=== PATIENT | male | born 1975 | race Caucasian/White ===

== ENCOUNTER 2025-06-24 07:46 | Emergency (ER) | payer OTHER, SELFPAY ==
[2025-06-24] VITALS (70 sets, daily range): BP systolic 148–192; BP diastolic 80–102; PULSE 52–90; RESP 10–36; TEMP 36.9; O2SAT 87–99; BMI 29.9
--- NOTE | 2025-06-24 07:55 | DI.CT.S_ITS ---
PROCEDURE: CT TRAUMA CHEST ABDOMEN PELVIS INDICATIONS: Trauma TECHNIQUE: MDCT axial chest images were obtained with IV contrast in the arterial phase. Maximum intensity projections and multiplanar reformats were obtained. MDCT axial abdomen and pelvis images were obtained with IV contrast in the portal venous phase. Multiplanar reformats were obtained. Optional delayed phase scanning may also be obtained Advanced techniques were used to lower patient radiation exposure. COMPARISON:None. FINDINGS Image Quality: Diagnostic. Chest: Lungs and pleura: No pneumothorax or hemothorax. No pulmonary contusions or lacerations. No solid pulmonary nodule requiring follow-up. Moderate centrilobular and paraseptal emphysema. 4 mm solid pulmonary nodule in the left upper lobe (3/179). 7 mm solid pulmonary nodule in the posterolateral right lower lobe (3/180). Vascular: No dissection or pseudoaneurysm. No incidental central pulmonary embolism. No hemopericardium. Moderate to severe coronary artery calcifications for age. Mediastinum: No mediastinum hematoma. No suspicious mass or lymph nodes. No actionable thyroid nodules. Chest wall: Mild displaced fracture of the left clavicular head adjacent to the sternoclavicular joint. Minimally displaced fractures of the left lateral 3rd through 6th ribs. Thoracic spine: No acute fracture or traumatic subluxation. ABDOMEN and PELVIS: Liver: No laceration or capsular hematoma. Gallbladder: Unremarkable. Biliary system: Non-dilated. Pancreas: Unremarkable. Spleen: No laceration or capsular hematoma. Adrenals: No suspicious nodules. Kidneys: No contrast extravasation or hydronephrosis. No solid masses. Vessels and lymph nodes: No pathology lymph nodes by size criteria. No dissection or aneurysm. No retroperitoneal hematoma. Bowel and peritoneum: No suspicious region of mesenteric hemorrhage or hemoperitoneum. No bowel obstruction. Pelvis: Unremarkable bladder. Pelvic ring and femurs: No pelvic ring disruption. No hip fractures. Benign enchondroma in the left proximal femur. Lumbar spine: Minimally displaced comminuted fracture of the L2 vertebral body with mild loss of vertebral body height. 3-4 mm retropulsion of osseous fragments at the L2-3 level, which result in moderate to severe narrowing of the spinal canal. Abdominal wall: No drainable fluid collection or hematoma. IMPRESSION: 1. Comminuted fracture of the L2 vertebral body with mild loss of vertebral body height. Approximately 3-4 mm retropulsion of osseous fragments at the L2-3 level results in moderate to severe narrowing of the spinal canal. 2. Minimally displaced left lateral 3rd through 6th rib fractures. No pleural effusion or pneumothorax. 3. Mildly displaced fracture of the left medial clavicle adjacent to the sternoclavicular joint. 4. Moderate centrilobular and paraseptal emphysema. Right lower lobe 7 mm nodule. Recommend follow-up CT chest in 6-12 months. 5. Moderate to severe coronary artery calcifications. No acute vascular injury is seen. Approved by: Virgilio Vallejo M.D. on 06/24/2025 at 9:05
--- NOTE | 2025-06-24 07:55 | DI.RAD.S_ITS ---
PROCEDURE: XR KNEE LT 1TO2V INDICATIONS: trauma TECHNIQUE: 2 views of the knee were acquired. COMPARISON: None. FINDINGS: Bones: Micro the comminuted and mildly depressed fracture of the medial and lateral tibial plateau with vertical components and a transverse component at the tibial metaphysis, compatible with a Schatzker type 6 fracture. Sclerotic lesion at the distal femoral metadiaphysis with chondroid matrix is most likely a benign enchondroma. Soft tissues: Joint effusion is present with surrounding soft tissue swelling. No suspicious soft tissue calcifications. IMPRESSION: Comminuted and depressed Schatzker type 6 fracture of the proximal tibia. Approved by: Virgilio Vallejo M.D. on 06/24/2025 at 9:08
--- NOTE | 2025-06-24 07:55 | EKG_ITS ---
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
--- NOTE | 2025-06-24 07:55 | DI.RAD.S_ITS ---
PROCEDURE: XR TIBIA FIBULA LT 2V INDICATIONS: trauma TECHNIQUE: 2 views of the tibia and fibula were acquired. COMPARISON: None. FINDINGS: Bones: Comminuted mildly depressed Schatzker type 6 fracture of the proximal tibia. No distal tibial fracture is seen. The fibula is intact. Soft tissues: No suspicious soft tissue calcifications. IMPRESSION: Comminuted depression after type 6 fracture of the proximal tibia. Approved by: Virgilio Vallejo M.D. on 06/24/2025 at 9:09
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
[2025-06-24] MEDS: ONDANSETRON 4 MG/2 ML INJ IV (08:05)
[2025-06-24 08:10] LABS: Add Manual Diff / Slide Review NO; Hematocrit 36.7 % (41-53); Hemoglobin 12.7 g/dL (13.5-17.5); Lymphocytes Absolute Auto 1700 /uL (1100-4500); Mean Corpuscular HGB Conc 34.6 % (30-36); Mean Corpuscular Hemoglobin 31.0 PG (26-34); Mean Corpuscular Volume 89.5 fL (80-100); Platelet Count 283 X10^3/uL (150-400)
[2025-06-24 08:18] LABS: INR 1.0 (0.9-1.3); Prothrombin Time 10.9 SECONDS (9.4-12.5)
[2025-06-24 08:21] LABS: PTT Partial Thromboplastin Tim 27 SECONDS (25.1-36.5)
[2025-06-24 08:28] LABS: Alanine Aminotransferase 43 IU/L (<50); Albumin 4.1 g/dL (3.5-5.0); Albumin Globulin Ratio 1.1 (1.0-2.8); Alkaline Phosphatase 95 U/L (38-126); Blood Urea Nitrogen 21 mg/dL (9-20); Calcium 9.2 mg/dL (8.4-10.2); Carbon Dioxide 25 mmol/L (22-32); Chloride 104 mmol/L (98-107); Estimated Glomerular Filt Rate > 60 mL/min (>60); Ethanol (ETOH) < 10 mg/dL (<10); Globulin 3.8 g/dL (1.7-4.1); Glucose 166 mg/dL (70-99); HEMOLYSIS < 15 (0-50); Lactate (Lactic Acid) 1.8 mmol/L (0.7-2.1); Lipase 52 U/L (23-300); Potassium 3.9 mmol/L (3.4-5.1); Sodium 136 mmol/L (137-145); Total Protein 7.9 g/dL (6.3-8.2)
--- NOTE | 2025-06-24 09:20 | PC.NURSE ---
This RN went and stabilized patient neck throughout all transfers in diagnostic imaging. This RN present with patient throughout time away from department and patient on portable monitor throughout time away from department.
--- NOTE | 2025-06-24 09:23 | PC.NURSE ---
Dr. Romero cleared patient c-spine and took patient c-collar off himself at 09:17am.
[2025-06-24] MEDS: LACTATED RINGERS 1,000 ML 125 ML IV (09:49)
[2025-06-24 11:05] LABS: Ur Creatinine Normal (Normal); Ur Specific Gravity Normal (Normal); Urine MDMA Negative (Negative); Urine Methamphetamines Negative (Negative); Urine THC Positive (Negative); Urine Tricyclic Antidepressant Negative (Negative); Urine pH Normal (Normal)
--- NOTE | 2025-06-24 11:21 | PC.NURSE ---
This RN gave verbal report to [employer] for [facility]. Patient leaves department on vacuum splint as ordered by Dr. Romero. Patient lactated ringers infusion is transferred to manager brand pump and patient leaves department with infusion.
== END 2025-06-24 11:23 | disposition short-term general hospital (02) ==
PROVIDERS: Emergency Provider Emergency Medicine
DX: S22.42XA Multiple fractures of ribs, left side, initial encounter for closed fracture (principal); S32.022A Unstable burst fracture of second lumbar vertebra, initial encounter for closed fracture; S42.012A Anterior displaced fracture of sternal end of left clavicle, initial encounter for closed fracture; S82.142A Displaced bicondylar fracture of left tibia, initial encounter for closed fracture; M54.6 Pain in thoracic spine; V03.90XA Pedestrian on foot injured in collision with car, pick-up truck or van, unspecified whether traffic or nontraffic accident, initial encounter
CPT/HCPCS: 29505; 36415; 70450; 71275; 72125; 73560; 73590; 74177; 80053; 80305; 80320; 83605; 83690; 85025; 85610; 85730; 93005; 96361; 96374; 96375; 96376; 99285; J1171; J2405; J7120; Q9967